=== PATIENT | female | born 1945 | race Caucasian/White ===

== ENCOUNTER 2017-06-02 16:08 | Emergency (ER) | payer MEDICARE, MEDICAID ==
[2017-06-02] MEDS ORDERED: Aspirin 81 MG Tab.Chew PO ONE (16:45)
[2017-06-02 17:34] LABS: ANION GAP 10.8; CHLORIDE,CL 99 mmol/L (101-111); SODIUM,NA 139 mmol/L (135-145)
--- NOTE | 2017-06-02 17:47 | EDM.PDOC ---
ED HPI GENERAL MEDICAL PROBLEM - General Chief Complaint: Cardiovascular Problem Stated Complaint: [id number] Time Seen by Provider: 06/02/17 16:40 Source of Information: Reports: Patient, RN, RN Notes Reviewed History Limitations: Reports: No Limitations - History of Present Illness INITIAL COMMENTS - FREE TEXT/NARRATIVE: Pt presents to ER with c/o elevated blood pressure. She was seen at the clinic today by Esthela Leblanc NP for a physical. At that time, her BP was quite elevated and the patient stated a headache and fatigue. Patient has a history of NM and several angiograms/angioplasty. Patient denies chest pain. Onset: Today, Sudden - Related Data Allergies Allergy/AdvReac Type Severity Reaction Status Date / Time IV dye Allergy Cannot Uncoded 06/02/17 16:36 Remember TB test Allergy Airway Uncoded 06/02/17 16:36 Tightness Past Medical History HEENT History: Reports: Impaired Vision Cardiovascular History: Reports: Heart Murmur, High Cholesterol, Hypertension RED LEADER History: Reports: Endometriosis, Oncologic (Cancer) History: Reports: Other (See Below) Other Oncologic History: endometrial CA - Past Surgical History HEENT Surgical History: Reports: Cataract Surgery, Other (See Below) Other HEENT Surgeries/Procedures: eyelid surgery GI Surgical History: Reports: Bariatric Procedure, Cholecystectomy, Hernia Repair/Other Female Surgical History: Reports: D&C, Hysterectomy Musculoskeletal Surgical History: Reports: Knee Replacement Social & Family History - Tobacco Use Smoking Status *Q: Never Smoker - Caffeine Use Caffeine Use: Reports: None - Recreational Drug Use Recreational Drug Use: No ED ROS GENERAL - Review of Systems Review Of Systems: ROS reveals no pertinent complaints other than HPI. ED EXAM, GENERAL - Physical Exam Exam: See Below Exam Limited By: No Limitations General Appearance: Alert, WD/WN, No Apparent Distress Eye Exam: Bilateral Eye: EOMI, Normal Inspection, PERRL Ears: Normal External Exam, Hearing Grossly Normal Nose: Normal Inspection Throat/Mouth: Normal Inspection, Normal Voice, No Airway Compromise Head: Atraumatic, Normocephalic Neck: Normal Inspection, Supple, Non-Tender, Full Range of Motion Respiratory/Chest: No Respiratory Distress, No Accessory Muscle Use, Chest Non- Tender, Decreased Breath Sounds, Wheezing (expiratory, upper lobes, bilatera) Cardiovascular: Normal Peripheral Pulses, Regular Rate, Rhythm, No Gallop, No JVD, No Murmur, No Rub. No: No Edema (+1 ankle bilateral) Peripheral Pulses: 2+: Radial (L), Radial (R), Dorsalis Pedis (L), Dorsalis Pedis (R) GI/Abdominal: Normal Bowel Sounds, Soft, Non-Tender, No Organomegaly, No Distention, No Abnormal Bruit, No Mass (Female) Exam: Deferred Rectal (Female) Exam: Deferred Back Exam: Normal Inspection, Decreased Range of Motion (chronic low back pain) Extremities: Normal Inspection, Normal Range of Motion, Non-Tender, No Pedal Edema, Normal Capillary Refill Neurological: Alert, Oriented, Normal Cognition Psychiatric: Normal Affect, Normal Mood Skin Exam: Warm, Dry, Intact, Normal Color, No Rash Lymphatic: No Adenopathy EKG INTERPRETATION EKG Date: 06/02/17 Time: 17:00 Rhythm: NSR Rate (Beats/Min): 68 Comparison: NA - No Prior EKG Course - Vital Signs Last Recorded V/S: Last Vital Signs Temp 97.4 F 06/02/17 16:31 Pulse 74 06/02/17 16:31 Resp 16 06/02/17 16:31 BP 157/64 H 06/02/17 16:31 Pulse Ox 94 L 06/02/17 16:31 - Orders/Labs/Meds Orders: Active Orders 24 hr Category Date Time Status EKG Documentation Completion [RC] STAT Care 06/02/17 16:44 Active UA W/MICROSCOPIC [URIN] Stat Lab 06/02/17 17:57 Ordered Labs: Laboratory Tests 06/02/17 06/02/17 06/02/17 Range/Units 17:00 17:00 17:00 WBC 7.3 (5.0-10.0) 10^3/uL RBC 4.77 (4.2-5.4) 10^6/uL Hgb 12.9 (12.0-16.0) g/dL Hct 40.2 (37.0-47.0) % MCV 84.3 (80-100) fL MCH 27.0 (27.0-34.0) pg MCHC 32.1 L (33.0-35.0) g/dL Plt Count 219 (150-450) 10^3/uL Neut % (Auto) 56.2 (42.2-75.2) % Lymph % (Auto) 30.6 (20.5-50.1) % [place] % (Auto) 9.7 H (2-8) % Eos % (Auto) 2.9 (1.0-3.0) % Baso % (Auto) 0.6 (0.0-1.0) % Sodium 139 (135-145) mmol/L Potassium 3.8 (3.6-5.0) mmol/L Chloride 99 L (101-111) mmol/L Carbon Dioxide 33.0 H (21.0-31.0) mmol/L Anion Gap 10.8 BUN 8 (7-18) mg/dL Creatinine 0.7 (0.6-1.3) mg/dL Est Cr Clr Drug Dosing 55.62 mL/min Estimated GFR (MDRD) > 60 BUN/Creatinine Ratio 11.42 Glucose 92 (74-105) mg/dL Calcium 9.0 (8.4-10.2) mg/dl Total Bilirubin 0.1 L (0.2-1.0) mg/dL AST 19 (10-42) IU/L ALT 24 (10-60) IU/L Alkaline Phosphatase 74 (42-121) IU/L Troponin I < 0.02 (0.00-0.02) ng/ml Total Protein 6.9 (6.7-8.2) g/dl Albumin 3.3 (3.2-5.5) g/dl Globulin 3.6 Albumin/Globulin Ratio 0.92 TSH, Ultra Sensitive 1.29 (0.45-5.33) uIu/mL Meds: Medications Discontinued Medications Generic Name Dose Route Start Last Admin Trade Name Aamir PRN Reason Stop Dose Admin Aspirin 324 mg 06/02/17 16:45 06/02/17 16:50 Aspirin PO 06/02/17 16:46 324 mg ONETIME ONE Administration Departure - Departure Time of Disposition: 17:47 Disposition: Home, Self-Care 01 Clinical Impression: Hypertension Qualifiers: Hypertension type: unspecified Qualified Code(s): I10 - Essential (primary) hypertension Instructions: Hypertension, [id number] Forms: ED Department Discharge Additional Instructions: Continue taking medications as directed. Rest Follow up with your primary care facility this week to have BP rechecked. - My Orders Last 24 Hours: My Active Orders 06/02/17 16:44 EKG Documentation Completion [RC] STAT 06/02/17 17:57 UA W/MICROSCOPIC [URIN] Stat - Assessment/Plan Last 24 Hours: My Active Orders 06/02/17 16:44 EKG Documentation Completion [RC] STAT 06/02/17 17:57 UA W/MICROSCOPIC [URIN] Stat
--- NOTE | 2017-06-04 15:37 | EKG ---
06/02/2017 - TA MORROW - FINDINGS: This 12-lead EKG shows a normal sinus rhythm with a ventricular rate of 68. Normal axis and intervals. No acute ST-T wave changes. Nonspecific T- wave abnormalities seen in the anterolateral leads. [facility] /[id number]
== END 2017-06-02 18:25 | disposition home or self-care (01) ==
LOC: DL.ED 16:08
DX: I10 Essential (primary) hypertension (principal); E78.00 Pure hypercholesterolemia, unspecified; Z88.7 Allergy status to serum and vaccine; Z91.041 Radiographic dye allergy status
CPT/HCPCS: 36415; 80053; 81001; 84443; 84484; 85025; 93005; 93010; 99283; A9270

== ENCOUNTER 2021-03-02 19:11 | Emergency (ER) | payer MEDICARE, MEDICAID ==
--- NOTE | 2021-03-02 19:13 | EDM.PDOC ---
ED HPI GENERAL MEDICAL PROBLEM - General Stated Complaint: AMBULANCE Time Seen by Provider: 03/02/21 19:11 Source of Information: Reports: Patient, EMS, Old Records History Limitations: Reports: No Limitations - History of Present Illness INITIAL COMMENTS - FREE TEXT/NARRATIVE: Pt is here for chest pain that started just prior to calling for the ambulance. She was shopping at [employer] when the pain started. She described the pain as a sharp pain in her back that radiated to her chest. She has had a heart attack before in the 90s and reports this is what it felt like. She denies any headache or pain in her jaw or arm. She took 4 nitro without relief so she called for the ambulance. By the time EMS arrived she noted her pain was gone. She noted it was a 9/10 initially but is only a 2/10 on arrival to the ER. She notes a heaviness in her chest. She has COPD and does wear oxygen at night. On EMS arrival to the scene she was sating only 89% on room air. She did increase to 95% on 2L via NC. Pt reports she has had anginal spells before, but usually gets better after taking a nitro and putting her feet up. However, being in the store, she was unable to do so and maybe started to get a little nervous. Pt notes her pain now, 30 minutes after arrival, is 0/10. 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 Chart review from [facility] shows it has not been interpreted yet. Her last echo was 12/2020 with EF of 60-65% and grade 1 diastolic dysfunction. - Related Data Allergies Allergy/AdvReac Type Severity Reaction Status Date / Time IV dye Allergy Cannot Uncoded 03/02/21 19:11 Remember TB test Allergy Airway Uncoded 03/02/21 19:11 Tightness V8 juice Allergy Hives Uncoded 03/02/21 19:11 Home Meds: Home Meds Albuterol Sulfate [Ventolin Hfa] 2 puff IH Q6HR PRN 08/10/17 [History] Albuterol [Proventil Neb Soln] 3 ml IH Q6HR PRN 08/10/17 [History] Aspirin [Ecotrin EC] 81 mg PO DAILY 08/10/17 [History] Benzonatate 100 mg PO TID PRN 08/10/17 [History] Irbesartan 300 mg PO DAILY 08/10/17 [History] Nitroglycerin [Nitrostat] 0.4 mg SL ASDIRECTED 08/10/17 [History] Rosuvastatin [Crestor] 20 mg PO ASDIRECTED 08/10/17 [History] Rosuvastatin [Crestor] 40 mg PO ASDIRECTED 08/10/17 [History] Venlafaxine [Effexor XR] 37.5 mg PO DAILY 08/10/17 [History] amLODIPine Besylate [Amlodipine Besylate] 5 mg PO BEDTIME 08/10/17 [History] traZODone HCl [Trazodone HCl] 50 mg PO BEDTIME 08/10/17 [History] Past Medical History HEENT History: Reports: Impaired Vision Cardiovascular History: Reports: Heart Murmur, High Cholesterol, Hypertension 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: Endometriosis, Oncologic (Cancer) History: Reports: Other (See Below) Other Oncologic History: endometrial CA - Past Surgical History HEENT Surgical History: Reports: Cataract Surgery, Other (See Below) Other HEENT Surgeries/Procedures: eyelid surgery GI Surgical History: Reports: Bariatric Procedure, Cholecystectomy, Hernia Repair/Other Female Surgical History: Reports: D&C, Hysterectomy Musculoskeletal Surgical History: Reports: Knee Replacement Social & Family History - Caffeine Use Caffeine Use: Reports: None ED ROS GENERAL - Review of Systems Review Of Systems: Comprehensive ROS is negative, except as noted in HPI. ED EXAM, GENERAL - Physical Exam Exam: See Below Exam Limited By: No Limitations General Appearance: Alert, WD/WN, No Apparent Distress Eye Exam: Bilateral Eye: Normal Inspection Ears: Normal External Exam Nose: Normal Inspection, No Blood Throat/Mouth: Normal Inspection, Normal Voice, No Airway Compromise Head: Atraumatic, Normocephalic Neck: Normal Inspection, Supple, Non-Tender Respiratory/Chest: No Respiratory Distress, Lungs Clear, Normal Breath Sounds, No Accessory Muscle Use, Chest Non-Tender Cardiovascular: Normal Peripheral Pulses, Regular Rate, Rhythm, No Murmur GI/Abdominal: Normal Bowel Sounds, Soft, No Distention (Female) Exam: Deferred Rectal (Female) Exam: Deferred Back Exam: Normal Inspection, Full Range of Motion Extremities: Normal Inspection, No Pedal Edema, Normal Capillary Refill Neurological: Alert, Oriented, Normal Cognition, No Motor/Sensory Deficits Psychiatric: Normal Affect, Normal Mood Skin Exam: Warm, Dry, Intact, Normal Color, No Rash Lymphatic: No Adenopathy #1 Interpretation EKG Date: 03/02/21 Rhythm: NSR EKG Interpretation Comments: right/left arm reversal #2 Interpretation EKG Date: 03/02/21 Rhythm: NSR Rowe: Normal P-Wave: Present QRS: Normal ST-T: Normal QT: Normal Course - Vital Signs Last Recorded V/S: Last Vital Signs Temp 97.3 F 03/02/21 19:20 Pulse 70 03/02/21 19:20 Resp 18 03/02/21 19:20 BP 152/67 H 03/02/21 19:20 Pulse Ox 98 03/02/21 19:20 - Orders/Labs/Meds Orders: Active Orders 24 hr Category Date Time Status Peripheral IV Care [RC] . DIRECTED Care 03/02/21 19:14 Active Sodium Chloride 0.9% [Saline Flush] Med 03/02/21 19:14 Active 10 ml FLUSH ASDIRECTED PRN Peripheral IV Insertion Adult [OM.PC] Stat Oth 03/02/21 19:14 Ordered Medication Orders Sodium Chloride (Sodium Chloride 0.9% 10 Ml Syringe) 10 ml FLUSH ASDIRECTED PRN PRN Reason: Keep Vein Open Last Admin: 03/02/21 19:23 Dose: 10 ml Documented by: UZMA Labs: Laboratory Tests 03/02/21 03/02/21 03/02/21 Range/Units 19:20 19:20 19:20 WBC 6.8 (5.0-10.0) 10^3/uL RBC 5.14 (4.2-5.4) 10^6/uL Hgb 14.0 (12.0-16.0) g/dL Hct 43.2 (37.0-47.0) % MCV 84.0 (80-100) fL MCH 27.2 (27.0-34.0) pg MCHC 32.4 L (33.0-35.0) g/dL Plt Count 211 (150-450) 10^3/uL Neut % (Auto) 57.6 (42.2-75.2) % Lymph % (Auto) 26.7 (20.5-50.1) % [place] % (Auto) 11.8 H (2-8) % Eos % (Auto) 3.5 H (1.0-3.0) % Baso % (Auto) 0.4 (0.0-1.0) % PT 10.4 (9.0-12.0) SEC INR 1.0 (0.9-1.2) APTT 23.2 (22.0-34.0) SEC D-Dimer, Quantitative 363 (0-400) ng/mL Sodium 142 (136-145) mmol/L Potassium 3.6 (3.5-5.1) mmol/L Chloride 104 (98-107) mmol/L Carbon Dioxide 31 (21-32) mmol/L Anion Gap 10.6 (7-13) mEq/L BUN 11 (7-18) mg/dL Creatinine 0.85 (0.55-1.02) mg/dL Est Cr Clr Drug Dosing 43.82 mL/min Estimated GFR (MDRD) > 60 BUN/Creatinine Ratio 12.9 (No establ ref range) Glucose 110 H (70-99) mg/dL Calcium 8.7 (8.5-10.1) mg/dL Total Bilirubin 0.6 (0.2-1.0) mg/dL AST 11 L (15-37) U/L ALT 20 (14-59) U/L Alkaline Phosphatase 80 (46-116) U/L Troponin I High Sens 7 (<=51) pg/mL Total Protein 6.9 (6.4-8.2) g/dL Albumin 3.2 L (3.4-5.0) g/dL Globulin 3.7 Albumin/Globulin Ratio 0.86 Meds: Medications Generic Name Dose Route Start Last Admin Trade Name Freq PRN Reason Stop Dose Admin Sodium Chloride 10 ml 03/02/21 19:14 03/02/21 19:23 Sodium Chloride 0.9% 10 Ml Syringe FLUSH 10 ml ASDIRECTED PRN Administration Keep Vein Open Discontinued Medications Generic Name Dose Route Start Last Admin Trade Name Freq PRN Reason Stop Dose Admin Ondansetron HCl 4 mg 03/02/21 19:21 03/02/21 19:23 Ondansetron 4 Mg/2 Ml Sdv IVPUSH 03/02/21 19:22 4 mg ONETIME ONE Administration Ondansetron HCl Confirm 03/02/21 19:22 03/02/21 19:28 Ondansetron 4 Mg/2 Ml Sdv Administered 03/02/21 19:23 Not Given Dose 4 mg .ROUTE .[facility] - Re-Assessments/Exams Free Text/Narrative Re-Assessment/Exam: Reviewed labs with the pt. Recommend she stay and have repeat troponin and EKG done in 3 hours. Pt refused and would like to be discharged. 03/02/21 20:10 Departure - Departure Time of Disposition: 20:14 Disposition: Home, Self-Care 01 Condition: Fair Clinical Impression: Angina pectoris Instructions: Nonspecific Chest Pain, Adult, [id number] Additional Instructions: If pain returns, call 911 or return to the ER right away Follow up with your primary care provider and cardiology in 3-5 days, or sooner if needed. Sepsis Event Note (ED) - Focused Exam Vital Signs: Vital Signs Temp Pulse Resp BP Pulse Ox 03/02/21 19:20 97.3 F 70 18 152/67 H 98 - My Orders Last 24 Hours: My Active Orders 03/02/21 19:14 Peripheral IV Care [RC] . DIRECTED Sodium Chloride 0.9% [Saline Flush] 10 ml FLUSH ASDIRECTED PRN Peripheral IV Insertion Adult [OM.PC] Stat - Assessment/Plan Last 24 Hours: My Active Orders 03/02/21 19:14 Peripheral IV Care [RC] . DIRECTED Sodium Chloride 0.9% [Saline Flush] 10 ml FLUSH ASDIRECTED PRN Peripheral IV Insertion Adult [OM.PC] Stat
[2021-03-02] MEDS ORDERED: Sodium Chloride 0.9% 10 ML Syringe FLUSH PRN (19:14)
[2021-03-02] MEDS ORDERED: Ondansetron 4 MG/2 ML SDV IVPUSH ONE (19:21)
[2021-03-02] MEDS ORDERED: Ondansetron 4 MG/2 ML SDV ONE (19:22)
[2021-03-02 19:50] LABS: ANION GAP 10.6 mEq/L (7-13); CHLORIDE,CL 104 mmol/L (98-107); SODIUM,NA 142 mmol/L (136-145)
[2021-03-02 19:58] LABS: PTT,PARTIAL THROMBOPLSTIN TIME 23.2 SEC (22.0-34.0)
== END 2021-03-02 20:39 | disposition home or self-care (01) ==
LOC: DL.ED 19:11
DX: I20.9 Angina pectoris, unspecified (principal); I10 Essential (primary) hypertension; E78.00 Pure hypercholesterolemia, unspecified; Z91.041 Radiographic dye allergy status; Z79.82 Long term (current) use of aspirin; Z79.899 Other long term (current) drug therapy
CPT/HCPCS: 36415; 80053; 84484; 85025; 85379; 85610; 85730; 93005; 96374; 99285; J2405

== ENCOUNTER 2021-12-02 03:58 | Emergency (ER) | payer MEDICARE, MEDICAID ==
[2021-12-02] MEDS ORDERED: Ondansetron 4 MG/2 ML SDV IVPUSH ONE (04:33)
[2021-12-02 05:11] LABS: ANION GAP 10.9 mEq/L (7-13)
== END 2021-12-02 09:00 | disposition home or self-care (01) ==
LOC: DL.ED 03:58
DX: R07.89 Other chest pain (principal); J44.9 Chronic obstructive pulmonary disease, unspecified; E78.00 Pure hypercholesterolemia, unspecified; I10 Essential (primary) hypertension; I25.2 Old myocardial infarction; E11.9 Type 2 diabetes mellitus without complications; Z91.041 Radiographic dye allergy status; Z79.82 Long term (current) use of aspirin; Z79.899 Other long term (current) drug therapy; Z20.822 Contact with and (suspected) exposure to COVID-19
CPT/HCPCS: 36415; 71045; 80053; 81003; 82150; 83690; 83735; 83880; 84443; 84484; 85025; 85379; 85610; 93005; 93010; 96374; 99284; 99285-25; J2405; U0002

== ENCOUNTER 2022-01-26 17:41 | Emergency (ER) | payer OTHER, MEDICARE, MEDICAID ==
[2022-01-26] MEDS ORDERED: Ketorolac 30 MG/ML SDV IM ONE (20:01)
[2022-01-26] MEDS ORDERED: Acetaminophen 500 MG Tab PO ONE (20:01)
== END 2022-01-26 20:17 | disposition home or self-care (01) ==
LOC: DL.ED 17:41
DX: S29.012A Strain of muscle and tendon of back wall of thorax, initial encounter (principal); S46.811A Strain of other muscles, fascia and tendons at shoulder and upper arm level, right arm, initial encounter; J44.9 Chronic obstructive pulmonary disease, unspecified; E78.00 Pure hypercholesterolemia, unspecified; I10 Essential (primary) hypertension; E11.9 Type 2 diabetes mellitus without complications; Z91.041 Radiographic dye allergy status; Z91.018 Allergy to other foods; Z88.7 Allergy status to serum and vaccine; Z79.899 Other long term (current) drug therapy; Z79.82 Long term (current) use of aspirin; Z90.49 Acquired absence of other specified parts of digestive tract; Z90.710 Acquired absence of both cervix and uterus; V49.50XA Passenger injured in collision with unspecified motor vehicles in traffic accident, initial encounter; Y92.410 Unspecified street and highway as the place of occurrence of the external cause
CPT/HCPCS: 73030; 96372; 99283; A9270; J1885